=== PATIENT | female | born 1945 | race Caucasian/White ===

== ENCOUNTER → 2023-08-24 08:28 | Outpatient (REF) | payer MEDICARE, OTHER, SELFPAY ==
[2023-08-24 12:26] LABS: Hematocrit 36.4 % (37.0-47.0); Hemoglobin 11.9 g/dL (12.0-16.0); Mean Corp Hgb Conc. 32.7 g/dL (33.0-37.0); Mean Corpuscular Hgb 30.8 pg (27.0-31.0); Mean Corpuscular Volume 94.3 fL (81.0-99.0); Mean Platelet Volume 9.8 fL (7.4-10.4); Platelet Count 413 10^3/uL (130-400); Red Blood Cell Count 3.86 10^6/uL (4.20-5.40); Red Cell Dist. Width 15.9 % (11.5-14.5); White Blood Cell Count 6.1 10^3/uL (4.8-10.8)
[2023-08-24 12:30] LABS: ALT (SGPT) 13 U/L (0-35); AST (SGOT) 28 U/L (14-36); Albumin 4.6 g/dl (3.5-5.0); Alkaline Phosphatase 79 U/L (38-126); Blood Urea Nitrogen 18 mg/dl (7-17); Calcium 9.8 mg/dl (8.4-10.2); Carbon Dioxide 27 mmol/L (22-30); Chloride 103 mmol/L (98-107); Glucose 95 mg/dl (70-99); HDL Cholesterol 95 mg/dl; LDL Cholesterol, Calculated 41 mg/dl; Potassium 4.9 mmol/L (3.5-5.1); Sodium 138 mmol/L (135-145); Total Bilirubin 0.4 mg/dl (0.2-1.3); Total Cholesterol 163 mg/dl (50-199); Total Protein 7.7 g/dl (6.3-8.2); Triglyceride 136 mg/dl (10-149); Very Low Density Lipoprotein 27 mg/dl (0-30); eGFR > 60.00
[2023-08-24 12:58] LABS: TSH Reflex To Free T4 0.76 uIU/ml (0.47-4.68)
[2023-08-24 13:17] LABS: Vitamin B12 942 pg/ml (239-931)
== END ==
LOC: HWLAB 08:28
PROVIDERS: ATTENDING PHYSICIAN Internal Medicine; FAMILY PHYSICIAN Specialist; REFERRING PHYSICIAN Internal Medicine Cardiovascular Disease
DX: I48.91 Unspecified atrial fibrillation (principal); G45.9 Transient cerebral ischemic attack, unspecified; D51.8 Other vitamin B12 deficiency anemias; I10 Essential (primary) hypertension; E03.9 Hypothyroidism, unspecified; F41.1 Generalized anxiety disorder; E78.5 Hyperlipidemia, unspecified; G89.29 Other chronic pain; R53.82 Chronic fatigue, unspecified; B94.8 Sequelae of other specified infectious and parasitic diseases; D68.69 Other thrombophilia
CPT/HCPCS: 36415; 80053; 80061; 82607; 84443; 85027; 93005

== ENCOUNTER → 2023-10-15 10:05 | Outpatient (REF) | payer MEDICARE, OTHER, SELFPAY | LOC: RCS 10:05 | PROVIDERS: ATTENDING PHYSICIAN Nurse Practitioner Gerontology; FAMILY PHYSICIAN Internal Medicine | DX: I34.0 Nonrheumatic mitral (valve) insufficiency (principal) | CPT/HCPCS: 93306 ==

== ENCOUNTER 2024-01-16 16:42 | Inpatient (IN) | payer MEDICARE, OTHER, SELFPAY ==
[2024-01-16] VITALS (10 sets, daily range): BP systolic 115–143; BP diastolic 59–88; BMI 27.5
[2024-01-16 13:19] LABS: % Basophils 0.5 % (0-2); % Eosinophils 3.1 % (0-6); % Immature Granulocytes 0.1 % (0-0.5); % Lymphocytes 20.9 % (20.5-51.1); % Monocytes 10.1 % (1.7-9.3); % Neutrophils 65.3 % (42.2-75.2); Absolute Eosinophils 0.2 10^3/uL (0-0.7); Absolute Lymphocytes 1.6 10^3/uL (1.2-3.4); Absolute Monocytes 0.8 10^3/uL (0.1-0.6); Absolute Neutrophils 4.8 10^3/uL (1.4-6.5); Hematocrit 33.2 % (37.0-47.0); Hemoglobin 11.1 g/dL (12.0-16.0); Mean Corp Hgb Conc. 33.4 g/dL (33.0-37.0); Mean Corpuscular Volume 95.7 fL (81.0-99.0); Mean Platelet Volume 9.4 fL (7.4-10.4); Nucleated Red Blood Cells % 0 %; Platelet Count 389 10^3/uL (130-400); Red Blood Cell Count 3.47 10^6/uL (4.20-5.40); Red Cell Dist. Width 15.6 % (11.5-14.5); White Blood Cell Count 7.4 10^3/uL (4.8-10.8)
[2024-01-16 13:23] LABS: ALT (SGPT) 19 U/L (0-35); AST (SGOT) 38 U/L (14-36); Alkaline Phosphatase 90 U/L (38-126); Blood Urea Nitrogen 10 mg/dl (7-17); Calcium 9.4 mg/dl (8.4-10.2); Carbon Dioxide 28 mmol/L (22-30); Chloride 101 mmol/L (98-107); Estimated Creatinine Clearance 43 ml/min; Glucose 85 mg/dl (70-99); Potassium 4.5 mmol/L (3.5-5.1); Sodium 134 mmol/L (135-145); Total Bilirubin 0.2 mg/dl (0.2-1.3); Total Protein 6.8 g/dl (6.3-8.2)
[2024-01-16 13:51] LABS: Troponin I 0.018 ng/ml
--- NOTE | 2024-01-16 14:15 | ED.CVA ---
History of Present Illness
General
Chief Complaint: CVA/TIA Symptoms
Source: patient and family
Time Seen by Provider: 01/16/24 12:50
Onset of Stroke Symptoms
Onset of symptoms known: Yes
Date of onset of symptoms: 01/16/24
History of Present Illness
History of Present Illness:
79-year-old female with history of CVA and A-fib on Eliquis who presents after she developed profound weakness. She states she dropped something and went to get up and could not get up due to profound leg weakness. Attempted to call sort of carry
her. Family also noticed a slight left facial droop. Patient states similar symptoms happened last time when she had a stroke event. At that time however her speech was markedly abnormal. Patient states symptoms started around 1220. c/o mild LA.
no trauma.
Past History
Past History
ED Past Medical History: Arrthythmia, CVA, Hypercholesterolemia and Valvular disease
Phy Exam
Physical Exam
Physical Exam:
CONSTITUTIONAL Patient alert and oriented to person, place and time. Well-appearing. Vital signs reviewed.
HEAD atraumatic, normocephalic.
EYES eyelids normal to inspection, Pupils equally round and reactive to light, Extraocular muscles intact, Conjunctiva normal, Sclera normal.
NECK normal range of motion, Trachea midline, no jugular venous distention.
RESPIRATORY CHEST No respiratory distress noted, Chest expansion equal.
CARDIOVASCULAR irregularly irregular
ABDOMEN No distention.
UPPER EXTREMITY range of motion normal, Motor strength normal, no cyanosis, no edema.
LOWER EXTREMITY range of motion normal, Motor strength normal, no cyanosis, no edema.
NEURO Speech normal, No focal motor deficits, Emily coma scale 15, Memory normal, Cranial Nerves intact to screening exam. Normal finger-nose. Normal [id number]. No visual field deficits
SKIN skin warm, dry, and normal in color.
PSYCHIATRIC patient oriented to person place and time, Normal affect.
Scores
NIH Stroke Score
Level of Consciousness: 0 - Alert
LOC Questions: 0-Answers both correctly
LOC Commands: 0-Performs both correctly
Best Horizontal Gaze: 0-Normal
Visual Spence: 0=Normal, no visual loss
Facial Palsy: 1=Minor paralysis
Motor - Right Arm: 0=No drift 10 seconds
Motor - Left Arm: 0=No drift 10 seconds
Motor - Right Le-No drift 5 seconds
Motor - Left Le-No drift 5 seconds
Limb Ataxia: 0-Absent
Sensation: 0-Normal
Best Language: 0-No aphasia
Dysarthria: 1-Mild slurring
Extinction and Inattention: 0-No abnormality
Total Score:: 2
Course
Orders/Labs/Results
Orders:
Orders
01/16/24 12:51
Electrocardiogram (*1) Urgent
Reason for Study: Fatigue / Weakness
CT Head W/o Iv Contrast Urgent
Comment:
Reason For Exam: weakness, LA, on eliquis
EKG- Treatment ONCE
Urinalysis Reflex To Culture Urgent
01/16/24 13:03
CBC/With Diff [Complete Blood Count/With Diff] Urgent
Comprehensive Metabolic Panel Urgent
Troponin I Urgent
01/16/24 13:23
CT Head/Neck Ang STROKE ALERT Urgent
Comment:
Reason For Exam: L facial droop, dysarthria
01/16/24 13:57
Aspirin 600 mg PO NOW STA
Abnormal Lab Results
01/16/24
13:03
RBC 3.47 L 10^6/uL
(4.20-5.40)
Hgb 11.1 L g/dL
(12.0-16.0)
Hct 33.2 L %
(37.0-47.0)
MCH 32.0 H pg
(27.0-31.0)
RDW 15.6 H %
(11.5-14.5)
Absolute Monos (auto) 0.8 H 10^3/uL
(0.1-0.6)
Monocytes % 10.1 H %
(1.7-9.3)
Sodium 134 L mmol/L
(135-145)
AST 38 H U/L
(14-36)
01/16/24 13:03
01/16/24 13:03
Vital Signs
Initial and Last Documented VS:
Initial Vital Signs
Pulse Resp BP
125 18 142/84
01/16/24 12:45 01/16/24 12:45 01/16/24 12:45
Last Documented Vital Signs
Pulse Resp BP
125 18 142/84
01/16/24 12:45 01/16/24 12:45 01/16/24 12:45
MDM/Problems Addressed
MDM/Problems Addressed:
Chronic atrial fibrillation, CVA
*Radiology
Radiology exam reviewed: radiology read reviewed
*Pulse Oximetry
Patient hypoxic: no
*EKG
Interpreted by ED Provider?: Yes
Interpretation: abnormal
[place]: normal axis
Ischemia: non-specific ST changes
*Rubber Grinder Interpretation
Rate: tachycardiac
Rhythm: a-fib
*Critical Care Note
Total Time (30-74mins, 75-104mins- exclusive of procedures): 30 minutes
Data Reviewed
Source: patient and family
Prescriptions/Medications Considered But Not Given:
Consider TNK but patient with Eliquis
Patient Management
Discussion with other providers: Hospitalist and Strong Nitric Operator (Discussed with neurology who recommends aspirin 600 mg.)
Escalation/DeEscalation of care consider admission/obs:
79-year-old female presents with neurologic symptoms as noted above. On reevaluation does seem a little better and her speech seems a little more clear. Initially when she came in her voice and speech seemed clear to me. Family arrived and felt
that her speech was little more dysarthric than her baseline. Stroke alert was initiated shortly after arrival. No indication for TNK on ED workup
ED Attending Note
-
Portions of this chart may have been created with voice recognition software.� Occasional wrong word or��sound alike� substitutions may have occurred due to the inherent limitations of voice recognition software.
Discharge Plan
Departure
Patient Disposition: Admit
Date of Disposition: 01/16/24
Time of Disposition: 14:28
Admit to: Telemetry
Presentation/result/management discussed w/ accepting MD/DO: Hospitalist
Discharge Problem:
Acute CVA (cerebrovascular accident), Atrial fibrillation
Prescriptions:
No Action
levothyroxine 75 mcg Tablet
75 mcg PO DAILY
tramadol 50 mg Tablet
50 mg PO TIDPRN PRN (Reason: severe pain)
alprazolam 0.5 mg Tablet
0.5 mg PO TID
zolpidem 10 mg Tablet
10 mg PO HSPRN PRN (Reason: sleep)
rosuvastatin 10 mg Tablet
10 mg PO QPM
Eliquis 5 mg Tablet
5 mg PO BID
sotalol 80 mg Tablet
40 mg PO Q12H Qty: 60 3RF
gabapentin 300 mg Capsule
900 mg PO TID
cyanocobalamin (vitamin B-12) 1,000 mcg Tablet
1,000 mcg PO DAILY
fluticasone propionate [Flonase] 50 mcg/actuation [place],Suspension
1 spray INTRANASAL DAILY
folic acid 800 mcg Tablet
0.8 mg PO DAILY
Referrals:
Leoncio Dutton MD [Family Provider] -
Interventions
Interventions:
*Risk Screen - Suicide Last Done: 01/16/24 12:56
*General Assessment Last Done: 01/16/24 12:56
*Neglect/Abuse Screening Last Done: 01/16/24 12:56
ED- Fall Risk Assessment Last Done: 01/16/24 12:58
*ED COVID-19 Vaccine History Last Done: 01/16/24 12:56
ED- Pulmonary Assessment Last Done: 01/16/24 12:58
ED- Neurological Assessment Last Done: 01/16/24 12:58
ED- Cardiac Assessment Last Done: 01/16/24 12:58
Discharge Date and Time
Print Language: OCCITAN
[2024-01-16] MEDS: ASPIRIN 600 MG PO (14:18)
--- NOTE | 2024-01-16 16:01 | HPS.HSE ---
Family Physician
-
Family Physician: Leoncio Dutton
Chief Complaint
-
Weakness, slurred speech
History of Present Illness
79-year-old woman with history of CVA and A-fib on Eliquis comes in after she developed profound weakness, worse on her legs. She states she dropped something and went to get up and could not get up due to leg weakness. Her family also noticed a
slight left facial droop. Patient states that she had similar symptoms last time when she had a stroke. At that time of my interview, her speech was normal. Patient states symptoms started around 1220. c/o mild LA. no trauma. Only symptoms at
the time of my interview were a mild subjective change in sensation on her cheeks, and bilateral leg weakness.
Medical History
Past Medical History
Past Medical History: Reports Other
Additional Past Medical History:
Arrthythmia,
CVA,
Hypercholesterolemia
Valvular disease
Severe mitral regurgitation
Pulmonary nodule
Paroxysmal a-fib
COVID
Pulmonary hypertension
Interstitial lung disease
Past Surgical History: Reports Other
Additional Past Surgical History:
not described
Social History
Tobacco: Non-smoker
Alcohol: Occasional
Drug: None
Family History
Family History: Not pertinent
Allergies / Home Medications
Allergies reflects when Allergies were last updated in [facility].
Home Medications with original date entered in [facility]
Allergy/Medication List:
Allergies
Allergy/AdvReac Type Severity Reaction Status Date / Time
No Known Allergies Allergy Unverified 12/07/22 16:11
Home Medications
alprazolam 0.5 mg tablet 0.5 mg PO TID Mental Health/Anxiety 12/07/22
apixaban 5 mg tablet (Eliquis) 5 mg PO BID Blood Clot Prevention/Tx 12/07/22
levothyroxine 75 mcg tablet 75 mcg PO DAILY Thyroid 12/07/22
rosuvastatin 10 mg tablet 10 mg PO QPM High Cholesterol 12/07/22
tramadol 50 mg tablet 50 mg PO TIDPRN PRN severe pain 12/07/22
zolpidem 10 mg tablet 10 mg PO HSPRN PRN sleep 12/07/22
sotalol 80 mg tablet 40 mg (1/2 x 80 mg) PO Q12H #60 tabs 12/11/22
cyanocobalamin (vitamin B-12) 1,000 mcg tablet 1,000 mcg PO DAILY 01/16/24
fluticasone propionate 50 mcg/actuation nasal spray,suspension 1 spray intranasal DAILY 01/16/24
folic acid 800 mcg tablet 0.8 mg PO DAILY 01/16/24
gabapentin 300 mg capsule 900 mg PO TID 01/16/24
Review of Systems
-
History Source: Patient
A 12 point ROS was completed and negative except as noted: Yes
Physical Exam
Vital Signs
Vital Signs
Pulse Resp BP
125 18 142/84
01/16/24 12:45 01/16/24 12:45 01/16/24 12:45
Physical Exam
General: Well Developed, Well Nourished, No Apparent Distress, Comfortable and Conversant
HEENT: [place] Conjunctivae, No Ptosis, Nose Appears Normal and Ears Appear Normal
Respiratory: Clear
Cardiac: S1/S2 and Irregular Rhythm
GI: Soft, Non Tender and Non Distended
Musculoskeletal: No Clubbing, No Cyanosis and No Edema
Skin: Warm and Dry; No Rash
Neuro: Awake, Alert, Oriented and AO x 3
Psych: Calm
Laboratory Results
-
01/16/24 13:03
01/16/24 13:03
Laboratory Results
Total Bilirubin 0.2 mg/dl (0.2-1.3) 01/16/24 13:03
AST 38 U/L (14-36) H 01/16/24 13:03
ALT 19 U/L (0-35) 01/16/24 13:03
Alkaline Phosphatase 90 U/L (38-126) 01/16/24 13:03
Troponin I 0.018 ng/ml 01/16/24 13:03
Data Reviewed
-
Lab Data: Labs Reviewed by me
Impression/Plan
-
IMPRESSION:
79 woman with bilateral leg weakness and changes of sensation to her face. Changes in speech resolved. Family concerned she may have a UTI. Significant findings:
H/H 11.1/33.2
Na 134
CT: no acute IC problems
PLAN:
1. Neuro symptoms - TIA vs metabolic encephalopathy from occult infection
Check UA
TIA/CVA workup per protocol
Neuro consult
2. Mild anemia - not likely to be clinically significant, normocytic with high RDW.
Follow as outpatient
Check again in am
3. Mild hyponatremia - not likely to be clinically significant
Check again in am
4. Afib - continue Eliquis, rat now < 100
Continue home meds
VCD for DVTp
Full code
[2024-01-16 16:42] LABS: Urine Albumin Trace (Neg - Trace); Urine Bilirubin Negative (Negative); Urine Character Slightly Cloudy (Clear); Urine Color Yellow; Urine Glucose Negative (Negative); Urine Ketone Negative (Negative); Urine Leukocyte 2+ (Negative); Urine Nitrite Negative (Negative); Urine Occult Blood 1+ (Negative); Urine Specific Gravity 1.005 (<1.030); Urine Urobilinogen Negative (Neg - 1+); Urine pH 6.5 (5.0-9.0)
[2024-01-16 16:56] LABS: Urine White Cell 26-30 /HPF (0-5)
[2024-01-16 16:57] LABS: Urine Bacteria Few (Negative)
--- NOTE | 2024-01-16 17:23 | CON.NEURO4 ---
Consultation - Neurology 4
-
CONSULTING PHYSICIAN: Jeremi Taveras MD(Neurology)
REFERRING PHYSICIAN: Hospitalist
DICTATED BY: Jeremi Taveras MD
DATE/TIME OF REQUEST: January 16, 2024
DATE/TIME OF CONSULTATION: January 16, 2024 1715
Reason for Consultation: Leg weakness
History of Present Illness:
This is a 79 year old right handed female who has presented to the hospital with (chief complaint) of leg weakness. She gives a history of COVID paroxysmal atrial fibrillation(Eliquis) severe mitral regurgitation interstitial lung disease
pulmonary hypertension osteoarthritis lumbar spondylosis/stenosis with lumbar radiculopathy. She had been initial state of health this morning. After she woke up this morning at 730 she had a breakfast and was watching TV. While getting her
medications at 1130 her pill splitter fell to the floor. She bent over to pick the pill splitter and she fell, hurting her back. She usually has low back pain radiating to the left leg. After she fell she had pain radiating into her right leg.
Subsequently she was unable to stand. She then called her daughter who had to pick her up. Since she was unable to stand, EMS was notified and patient was brought to the hospital. On arrival in ED physician noted facial asymmetry, and was
informed that she had slurred speech. Stroke alert was initiated. Given the low NIH score of 1-2 with no focal weakness other than gait ataxia she was not a candidate for intravenous thrombolysis
About 8 years ago she had a similar episode of weakness with slurred speech. However at this time she has no slurred speech or aphasia
Past Medical History: CVA, Hypercholesterolemia,Valvular disease,Severe mitral regurgitation,Pulmonary nodule,Paroxysmal atrial-fibrill, COVID, Pulmonary hypertension,Interstitial lung disease
Surgical History: None
Family History: Noncontributory
Social History: Lives at home with her daughter does not smoke or use alcohol
Allergies: None
Home Medications: See addendum
Review of Symptoms:
Patient denies any fever, headache, chest pain, shortness of breath, GI or symptoms.
�Per the HPI.�All systems are reviewed negative except above.
�-
Vital Signs:
The patient has a Pulse 125 Resp 18 BP142/84 afebrile
Physical Exam:
The patient is afebrile, heart sounds S1 and S2 are irregular, and chest is clear to auscultation bilaterally.
Neurologic Examination:
The patient is awake, alert and oriented x 3. She is able to follow commands and answer questions appropriately. There is no aphasia or dysarthria. On cranial nerve assessment, pupils are 3 mm bilateral, round and reactive to light and
accommodation. Visual alexandre are full. Extraocular movements are intact. Facial sensations are intact and bilaterally symmetrical, there is no facial asymmetry. Hearing is intact bilaterally to normal conversation volume. Tongue palate and uvula
are midline. Sternocleidomastoid strengths are full bilaterally.
Motor strengths are 5/5 bilateral upper extremities. Lower extremity strength is 3+ /5 . There is no drift or involuntary movement noted. Deep tendon reflexes are + bilateral upper and lower extremities and Babinski is absent bilaterally.
Sensations of pain, touch, temperature and vibration are decreased in the lower extremities and asymmetrical.. Coordination is intact by finger to nose bilaterally. Romberg's positive. Gait: She needs two-person assist
Lab Results: See addendum
Neuro Imaging: CT head reveals cortical atrophy small vessel disease normal ventricles. CT angiogram head and neck shows no stenosis or occlusion
Impression:
Ms.)NANCY Samantha SOUTH is a 79 year old F who has presented to the hospital with (symptoms/chief complaint). Low back pain and bilateral leg weakness who was unable to stand
Differentials for the patient's presentation include:
1. Lumbar spondylosis lumbar radiculopathy
2. Conus medullaris/cauda equina
3. Vertebrobasilar insufficiency
Patient is not a candidate IV Tenecteplase/IAT candidacy as history and exam are consistent with lumbar spondylosis and lumbar radiculopathy
Recommendations:
1. MRI lumbar spine
2. Bedrest
3. Physical therapy
Discussed patient care with: Hospitalist and radiologist
Allergies
-
Allergies
Allergy/AdvReac Type Severity Reaction Status Date / Time
No Known Allergies Allergy Unverified 12/07/22 16:11
Vital Signs and Labs
-
Vital Signs and Labs:
Vital Signs
Pulse Resp BP Pulse Ox
89 22 139/83 95
01/16/24 16:15 01/16/24 16:15 01/16/24 16:31 01/16/24 16:45
Lab Results
01/16/24 13:03
01/16/24 13:03
Sodium 134 mmol/L (135-145) L 01/16/24 13:03
Potassium 4.5 mmol/L (3.5-5.1) 01/16/24 13:03
BUN 10 mg/dl (7-17) 01/16/24 13:03
Glucose 85 mg/dl (70-99) 01/16/24 13:03
Calcium 9.4 mg/dl (8.4-10.2) 01/16/24 13:03
Medications
-
Active Medications
Generic Name Dose Route Start Last Admin
Trade Name Freq PRN Reason Stop Dose Admin
Acetaminophen 650 mg 01/16/24 17:22
Acetaminophen 650 Mg Rectal Suppository RECTAL 02/13/24 17:21
Q4HPRN PRN
LA, mild pain, or temp >100.4F
Acetaminophen 650 mg 01/16/24 17:22
Acetaminophen 325 Mg Tablet PO 02/13/24 17:21
Q4HPRN PRN
LA, mild pain, or temp >100.4F
Alprazolam 0.5 mg 01/16/24 22:00
Alprazolam 0.5 Mg Tablet PO 02/13/24 21:59
TID ANTONI
Apixaban 5 mg 01/16/24 20:00
Apixaban (Eliquis) 5 Mg Tablet PO 02/13/24 19:59
BID ANTONI
Aspirin 81 mg 01/17/24 08:00
Aspirin 81 Mg Chewable Tablet PO 02/14/24 07:59
DAILY ANTONI
Cyanocobalamin 1,000 mcg 01/17/24 08:00
Cyanocobalamin 1,000 Mcg Tablet PO 02/14/24 07:59
DAILY ANTONI
Gabapentin 900 mg 01/16/24 22:00
Gabapentin 300 Mg Capsule PO 02/13/24 21:59
TID ANTONI
Levothyroxine Sodium 75 mcg 01/17/24 08:00
Levothyroxine 75 Mcg Tablet PO 02/14/24 07:59
DAILY ANTONI
Non-Formulary Medication 1 spray 01/17/24 08:00
Fluticasone Propionate NASAL 02/14/24 07:59
DAILY ANTONI
Non-Formulary Medication 0.8 mg 01/17/24 08:00
Folic Acid PO 02/14/24 07:59
DAILY ANTONI
Rosuvastatin Calcium 10 mg 01/16/24 18:00
Rosuvastatin (Crestor) 10 Mg Tablet PO 02/13/24 17:59
QPM ANTONI
Sotalol HCl 40 mg 01/16/24 17:22
Sotalol 80 Mg Tablet PO 02/13/24 17:21
Q12H ANTONI
Tramadol HCl 50 mg 01/16/24 17:22
Tramadol Hcl 50 Mg Tablet PO 02/13/24 17:21
TIDPRN PRN
severe pain
Home Medications
�Medication �Instructions �Recorded
alprazolam 0.5 mg tablet 0.5 mg PO TID Mental Health/Anxiety 12/07/22
apixaban 5 mg tablet (Eliquis) 5 mg PO BID Blood Clot 12/07/22
Prevention/Tx
levothyroxine 75 mcg tablet 75 mcg PO DAILY Thyroid 12/07/22
rosuvastatin 10 mg tablet 10 mg PO QPM High Cholesterol 12/07/22
tramadol 50 mg tablet 50 mg PO TIDPRN PRN severe pain 12/07/22
zolpidem 10 mg tablet 10 mg PO HSPRN PRN sleep 12/07/22
sotalol 80 mg tablet 40 mg (1/2 x 80 mg) PO Q12H #60 12/11/22
tabs
cyanocobalamin (vitamin B-12) 1,000 mcg PO DAILY 01/16/24
1,000 mcg tablet
fluticasone propionate 50 1 spray intranasal DAILY 01/16/24
mcg/actuation nasal
spray,suspension
folic acid 800 mcg tablet 0.8 mg PO DAILY 01/16/24
gabapentin 300 mg capsule 900 mg PO TID 01/16/24
--- NOTE | 2024-01-16 17:48 | PTCARENOTE ---
01/15- Patient transferred and oriented to unit without issue. AAOX3, anxious, unable to ambulate without assistance or long distances. NIH currently a 3. Patient denies any current needs.
[2024-01-16] MEDS: BETAPACE 40 MG PO (20:00)
[2024-01-16] MEDS: ELIQUIS 5 MG PO (20:00)
[2024-01-16] MEDS: CRESTOR 10 MG PO (20:00)
[2024-01-16] MEDS: ULTRAM 50 MG PO (20:04)
[2024-01-16] MEDS: XANAX 0.5 MG PO (22:58)
[2024-01-16] MEDS: NEURONTIN 900 MG PO (22:58)
[2024-01-17] VITALS (7 sets, daily range): BP systolic 113–148; BP diastolic 55–95; PULSE 70–85; BMI 27.6
[2024-01-17] MEDS: SYNTHROID 75 MCG PO (05:38)
[2024-01-17] MEDS: NEURONTIN 900 MG PO ×2 (07:26→15:50)
[2024-01-17] MEDS: XANAX 0.5 MG PO ×2 (07:26→15:51)
[2024-01-17] MEDS: BETAPACE 40 MG PO (07:26)
[2024-01-17] MEDS: ELIQUIS 5 MG PO (07:26)
[2024-01-17] MEDS: VITAMIN B-12 1000 MCG PO (07:26)
[2024-01-17] MEDS: FOLVITE 0.8 MG PO (07:27)
--- NOTE | 2024-01-17 09:33 | PTCARENOTE ---
01/16- Found 2 Tylenol pills under patient's back that did not match our formulary, as well as Patient showing us her own supply of Eliquis. She did not show us these home meds during admission, because she states she forgot. Patient also states
she takes her Sotalol at 10am, not 8am so she requests the time be changed. She states no reason other than habit of taking Sotalol separate from other morning medications. Advised patient on hospital policy of processing her home meds through our
pharmacy so we can account for all medications as well as being sure no medication errors occur, so that she's only taking what's ordered. She verbalized understanding. She denies any other medications and states she will send her home meds home
with family when they visit today. Advised this RN will ask Physician about changing timing of Sotalol.
[2024-01-17 09:41] LABS: HDL Cholesterol 79 mg/dl; LDL Cholesterol, Calculated 70 mg/dl; Total Cholesterol 172 mg/dl (50-199); Triglyceride 119 mg/dl (10-149); Very Low Density Lipoprotein 23 mg/dl (0-30)
--- NOTE | 2024-01-17 09:51 | W.PN.HOSP.TC ---
Today's Communication/Plan
-
Discharge today
Assessment / Plan
Assessment / Plan
#Acute lower back pain with bilateral lower extremity weakness
#Mechanical fall
Thoracic and lumbar spine MRI shows degenerative disc disease
Orthostatic vital signs negative, PT recommends home care
Start Tylenol 1 g 3 times daily, tramadol prn
Cleared by neurology for discharge, follow-up in the office for EMG and acetylcholine receptor antibody results
#Asymptomatic bacteriuria
Monitor off antibiotic
#Paroxysmal atrial fibrillation
Continue Eliquis, sotalol
#Anxiety/depression
Continue Xanax
#Osteoarthritis/degenerative disc disease
Continue home tramadol
DVT prophylaxis�Eliquis
Full code
Updated daughter at bedside and on phone 01/16
Physical Exam
General: No acute distress
HEENT: Normocephalic, Atraumatic, EOMI, MMM
Respiratory: Clear to Auscultation bilaterally
Cardiac: Normal S1/S2, Regular Rate and Rhythm
GI: Soft, Nontender, Nondistended, Normal Bowel Sounds
Extremities: No Clubbing, Cyanosis, or Edema
Neuro: Nonfocal/Grossly Intact
Psych: Calm, Cooperative
Anticipated Discharge: Today
Subjective/Interval History
-
Date of Service: January 17, 2024
Patient reports her lower back pain has improved. She was able to stand with physical therapy. She complains of a headache and knee pain. No fever, no vomiting.
Objective Data
-
Vital Signs:
Vital Signs
Temp Pulse Resp BP Pulse Ox
98.5 F 91 18 139/64 97
01/17/24 07:00 01/17/24 07:00 01/17/24 07:00 01/17/24 07:00 01/17/24 07:00
I&O
01/16/24 01/17/24 01/18/24
06:59 06:59 06:59
Intake Total 240 / 240
Balance 240 / 240
--- NOTE | 2024-01-17 10:16 | PTOTSP ---
SPEECH THERAPY SWALLOW EVALUATION:
Patient exhibits grossly functional oropharyngeal swallow at this time. No signs or symptoms of aspiration. WBC WNL. No CXR available. No history of pneumonia. Patient with predisposing dysphagia/aspiration risk factors of past CVA, interstitial
lung disease. Patient initially was reported to have facial droop and slurred speech, though no facial droop or slurred speech noted at time of this evaluation. Head CT demonstrating chronic infarct involving superior margin of right insular cortex.
Patient endorsed chronic occasional globus sensation with solids which clears with liquid wash, and did not endorse globus sensation at time of this assessment. DDx per Neurology note include: Lumbar spondylosis lumbar radiculopathy; Conus
medullaris/cauda equina; Vertebrobasilar insufficiency. At this time, dysphagia treatment at the acute care level is not indicated, at patient appears to be at baseline level of swallow function. Recommend continue Regular texture diet, thin
liquids. Medications whole with liquid as best tolerated. Aspiration precautions: Upright positioning; Small single sips; small bites; Slow rate; Intersperse liquids. ST to follow for speech/language/cognitive communication evaluation should it be
warranted, though at this time no signs of speech/language or cognitive communication impairments are present.
RECOMMEND:
1) continue Regular texture solids, thin liquids
2) Medications whole with liquid as best tolerated
3) Aspiration precautions: Upright positioning; Small single sips; small bites; Slow rate; Intersperse liquids
4) No skilled Swallow Therapy is indicated at this time; ST to follow for speech/language/cognitive communication evaluation should it be warranted
[2024-01-17] MEDS: TYLENOL 1000 MG PO ×2 (10:54→15:51)
--- NOTE | 2024-01-17 11:53 | W.PN.NEURO.1 ---
Today's Communication / Plan
-
Check acetylcholine receptor antibodies
Consider outpatient EMG of bilateral lower extremities
Check orthostatic blood pressures
Continue apixaban
No indication at this time for the use of aspirin
Continue rosuvastatin
May continue use of gabapentin and tramadol as needed
Neuro Assessment/Plan
Assessment
Neuro Imaging: CT head reveals cortical atrophy small vessel disease normal ventricles. CT angiogram head and neck shows no stenosis or occlusion
MsShannon)LENNY SOUTH is a 79 year old F who has presented to the hospital with episode of fall and inability to stand.
Differentials for the patient's presentation For the patient's acute variable proximal weakness include:
Myasthenia gravis as evidence of a structural abnormality in the thoracic or lumbar spines is absent and the patient has no issue with bilateral upper extremity strength
Plan
Check acetylcholine receptor antibodies
Consider outpatient EMG of bilateral lower extremities
Check orthostatic blood pressures
Continue apixaban
No indication at this time for the use of aspirin
Continue rosuvastatin
May continue use of gabapentin and tramadol as needed
Will follow
Subjective/Objective
Subjective Data
Date of Service: January 17, 2024
No return of symptoms.
Objective Data
Vital Signs
Temp Pulse Resp BP Pulse Ox
36.9 C 91 18 139/64 97
01/17/24 07:00 01/17/24 07:00 01/17/24 07:00 01/17/24 07:00 01/17/24 07:25
Lab Results
01/16/24 13:03
01/16/24 13:03
Sodium 134 mmol/L (135-145) L 01/16/24 13:03
Potassium 4.5 mmol/L (3.5-5.1) 01/16/24 13:03
BUN 10 mg/dl (7-17) 01/16/24 13:03
Glucose 85 mg/dl (70-99) 01/16/24 13:03
Calcium 9.4 mg/dl (8.4-10.2) 01/16/24 13:03
LDL Cholesterol, Calc 70 mg/dl 01/17/24 07:12
Patient Allergies
No Known Allergies Allergy (Unverified 12/07/22 16:11)
Review of Systems
-
History Source: Patient
All other systems: Reviewed and negative
Musculoskeletal: Muscle Weakness (In lower extremities, not upper extremities) and Other (knee pain)
Neuro: Headache; Negative Dizzy
Physical Exam
-
General: No Apparent Distress and Appears Stated Age
Eyes: Round OU, [place] Conjunctivae and No Ptosis
HEENT: Anicteric and Moist Mucous Membranes
Neck: Full Range of Motion
Respiratory: No Dyspnea
Cardiac: No JVD
GI: Non-distended
Skin: Unremarkable
Extremities: No Clubbing, No Cyanosis and No Edema
Psych: Negative Intact Judgement/Insight
Extended Neurological Exam
Mood & Affect: Negative Affect Unremarkable (Irritable)
Attention Span & Concentration: Awake, Alert, Interactive and No Difficulty with 2 Step Request
Memory: Unremarkable
Tremor: Hand Tremor Absent and Head Tremor Absent
Speech: Quality Unremarkable and Quantity Unremarkable
Cranial Nerve II: Left Eye: Pupillary Size Unremarkable and Visual Spence Grossly Intact
Cranial Nerve II: Right Eye: Pupillary Size Unremarkable and Visual Spence Grossly Intact
Cranial Nerves III, IV, : Extraocular Movement: Grossly Intact
Cranial Nerve VII: Facial Symmetry: Normal Facial Symmetry
Cranial Nerve VIII: Hearing: Unremarkable Hearing to Normal Conversational Volume
Cranial Nerves IX, X: Palate Movement: Palate Elevation Symmetric
Cranial Nerve XI: Shoulder Shrug: Unremarkable
Cranial Nerve XII: Tongue Protusion: Midline
Muscle Strength, Overall: Reduced (Bilateral leg strength approximately 4+ out of 5) and Otherwise Intact
Muscle Bulk & Tone: Bulk Unremarkable and Tone Unremarkable
Pronator Drift: No Drift in Upper Extremities
Touch Sensation: Unremarkable
Coordination: [id number] Testing Unremarkable
Data Reviewed
-
MRI Cervical Spine: Report Reviewed
MRI Thoracic Spine: Report Reviewed
Labs: Report Reviewed
Reviewed with: Physician, Nurse Practioner, Patient and Family
Old Records: Summarized
Past History
Past History
ED Past Medical History: Arrthythmia (Atrial fibrillation), CVA, HTN, Hypercholesterolemia, Valvular disease and Other (CRISTIAN on CPAP, pulmonary hypertension, COVID-19 2020, chronic back pain)
ED Past Surgical History: Cardiac (Cardioversion 2022) and Gynecological (Hysterectomy)
Social History
Tobacco: Non-smoker
Alcohol: Occasional
Family History
Family History: Other (reviewed and non-contributory)
--- NOTE | 2024-01-17 15:36 | W.DCSUMMARY ---
Discharge Summary
Discharge Data
Date of Admission: 01/16/24
Date of Discharge: 01/17/24
-
Pending Results: No
Additional Pending Results:
Acetylcholine receptor antibodies
Hospital Course
Discharge diagnosis:
Acute on chronic lower back pain with bilateral lower extremity weakness
Mechanical fall
Asymptomatic bacteriuria
Paroxysmal atrial fibrillation on Eliquis
Anxiety/depression
Osteoarthritis
Degenerative disc disease
Consults: Neurology
Head CT:
No acute intracranial abnormality noted. No acute hemorrhage. Minor linear chronic infarct involving the superior margin of the right insular cortex. Atrophy.
Thoracic/lumbar spine MRI:
Chronic mild degenerative changes of the thoracic spine without MRI evidence for spinal canal stenosis or neuroforaminal stenosis.
Discogenic and facet degenerative changes. No compression deformity or spondylolisthesis. No compression of the conus medullaris or cauda equina.
Hospital course:
79-year-old female with a past medical history of paroxysmal atrial fibrillation on Eliquis, mitral regurgitation, interstitial lung disease, pulmonary hypertension, degenerative disc disease, and osteoarthritis presents with acute on chronic back
pain and bilateral lower extremity weakness after falling. 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 She injured her back, and has bilateral lower extremity weakness. She was seen in the emergency room, and had facial asymmetry.
Stroke alert was called. Patient was seen in conjunction with neurology, she was not a candidate for IV thrombolysis. Head CT was negative. Neurology suspects lumbar spondylosis with lumbar radiculopathy.
She had thoracic and lumbar spine MRI, showing chronic degenerative disc disease as above. She does have mild bilateral lower extremity weakness. Neurology recommends checking acetylcholine receptor antibodies, and outpatient EMG if her weakness
is persistent.
Patient was seen in conjunction with PT, who recommended home PT. She is medically stable for discharge. She has been instructed to follow-up with her primary care doctor in 1 week, as well as neurology in the office in 3-4 weeks.
Disposition: Home with home care
Discharge planning: Required 45 minutes
Discharge Plan
-
Patient Disposition: Home with Home Care
Discharge Diagnosis/Procedures: Bilateral leg weakness, fall, back pain, headache
Condition: Fair
Diet: Low Fat and Low Cholesterol
Activity: As tolerated
Driving Restrictions: As prior to admission
Other Services: VN and PT
Activity Restrictions/Additional Instructions:
If your leg weakness persists, you may benefit from a test called an EMG.
Please follow-up with your primary care doctor in 1 week, neurology in the office in 3-4 weeks.
Referrals:
Farzana Santoro CRNP [Specified Professional Personl] - in three to four weeks
Leoncio Dutton MD [Family Provider] - in one week
Prescriptions:
New
acetaminophen [Tylenol Extra Strength] 500 mg Tablet
1,000 mg PO TID 10 Days Qty: 60 0RF
Continued
levothyroxine 75 mcg Tablet
75 mcg PO DAILY
tramadol 50 mg Tablet
50 mg PO TIDPRN PRN (Reason: severe pain)
alprazolam 0.5 mg Tablet
0.5 mg PO TID
zolpidem 10 mg Tablet
10 mg PO HSPRN PRN (Reason: sleep)
rosuvastatin 10 mg Tablet
10 mg PO QPM
Eliquis 5 mg Tablet
5 mg PO BID
sotalol 80 mg Tablet
40 mg PO Q12H Qty: 60 3RF
gabapentin 300 mg Capsule
900 mg PO TID
cyanocobalamin (vitamin B-12) 1,000 mcg Tablet
1,000 mcg PO DAILY
fluticasone propionate 50 mcg/actuation [place],Suspension
1 spray INTRANASAL DAILY
folic acid 800 mcg Tablet
0.8 mg PO DAILY
Discharge Orders:
Discharge Patient (As Directed); Ordered 01/17/24
Ordered By: Baljinder Morris
Discharge Date and Time
Discharge Date/Time: 01/17/24 16:59
Print Language: [id number]
--- NOTE | 2024-01-17 15:48 | CM ---
Alert awake oriented patient who lives with her daughter Farzana who lives in an apartment with an elevator.She is independent in all activities of daily living.Offered VN she requested. Has CPAP from [facility].
Never had VN/SNF
Ph[facility]
PCP Dr Leoncio Dutton
PLAN Home with VN . Pt requested walker . MD to provide script and PT notified of walker need. Daughter will drive her home.
[2024-01-17] MEDS: ULTRAM 50 MG PO (15:51)
[2024-01-17 16:18] LABS: Ferritin 18.3 ng/ml (11.1-264.0)
--- NOTE | 2024-01-17 16:27 | VNURNOTE ---
Home Health Liaison met with patient and daughter Farzana at bedside to discuss [facility] nurse/therapy, visits, schedule and homebound status. Patient is agreeable and understands that visits at home will be 1-3 x per week to assess and teach medical
management. [facility] brochure provided with contact information. Patient is aware that [facility] will contact them for start of care within a few days after discharge from .
[facility] referral completed in [facility].
[2024-01-17 16:49] LABS: Folate > 20.0 ng/ml (2.76-20); Vitamin B12 > 1000 pg/ml (239-931)
[2024-01-17 19:34] LABS: TSH Reflex To Free T4 1.99 uIU/ml (0.47-4.68)
== END 2024-01-17 16:59 | disposition home health service (06) | DRG 71 ==
LOC: 4 WEST ACU 16:42
PROVIDERS: ADMITTING PHYSICIAN Internal Medicine; ATTENDING PHYSICIAN Family Medicine; EMERGENCY PHYSICIAN Emergency Medicine; FAMILY PHYSICIAN Internal Medicine; OTHER PHYSICIAN Psychiatry & Neurology Neurology
DX: G93.41 Metabolic encephalopathy (principal); E87.1 Hypo-osmolality and hyponatremia; I48.0 Paroxysmal atrial fibrillation; D64.9 Anemia, unspecified; G89.29 Other chronic pain; M51.16 Intervertebral disc disorders with radiculopathy, lumbar region; R53.1 Weakness; R82.71 Bacteriuria; F32.A Depression, unspecified; F41.9 Anxiety disorder, unspecified; Z79.01 Long term (current) use of anticoagulants
CPT/HCPCS: 93308; 70450; 70496; 70498; 72146; 72148; 80053; 80061; 81003; 81015; 82607; 82728; 82746; 84443; 84484; 85025; 86041; 87077; 87086; 92610; 93005; 93321; 93325; 97162; 97166; 99291; Q9967

== ENCOUNTER → 2024-03-09 09:42 | Outpatient (REF) | payer MEDICARE, OTHER, SELFPAY | LOC: RCS 09:42 | PROVIDERS: ATTENDING PHYSICIAN Internal Medicine Cardiovascular Disease; FAMILY PHYSICIAN Internal Medicine | DX: I48.0 Paroxysmal atrial fibrillation (principal); R29.6 Repeated falls; R55 Syncope and collapse | CPT/HCPCS: 93225; 93226 ==

== ENCOUNTER 2024-05-26 07:27 | Day surgery (SDC) | payer MEDICARE, OTHER, SELFPAY ==
[2024-05-26 09:24] VITALS: BMI 26.6
--- NOTE | 2024-05-26 09:30 | ITS.CL.CARDI ---
Entry Level Business Analyst - Cardioversion
Cardioversion
Procedure Report:
Date of Procedure: 05/26/2024.
Procedure: Cardioversion.
Indication: Symptomatic atrial fibrillation.
Performing Physician: Cherry Duron MD
Technique: The patient was brought to the holding area. Signed informed consent was obtained. A time out was called and performed. The patient was sedated by a member of the anesthesia service. Anticoagulation status was reviewed and was
appropriate. R-2 pads were placed anteriorly and posteriorly. A 200 J synchronized biphasic shock restored normal sinus rhythm with A 6-second conversion pause. No intervention was needed, rhythm returned to sinus bradycardia at 56 bpm without
intervention. Patient is on sotalol. There were no complications.
Conclusion: Successful cardioversion from atrial fibrillation to sinus rhythm. 6-second pause seen at time of conversion. No intervention needed to return to sinus bradycardia.
Recommendation: Routine post cardioversion care. Continue joint terminal attack controller anticoagulation.
cc: Sheila
== END 2024-05-26 09:45 | disposition home or self-care (01) ==
LOC: CATH 07:27
PROVIDERS: ATTENDING PHYSICIAN Internal Medicine Cardiovascular Disease; FAMILY PHYSICIAN Internal Medicine; OTHER PHYSICIAN Internal Medicine Cardiovascular Disease
DX: I48.0 Paroxysmal atrial fibrillation (principal); E78.00 Pure hypercholesterolemia, unspecified; I34.0 Nonrheumatic mitral (valve) insufficiency; I27.20 Pulmonary hypertension, unspecified; Z79.01 Long term (current) use of anticoagulants
CPT/HCPCS: 92960; 93005

== ENCOUNTER → 2024-08-28 07:36 | Outpatient (REF) | payer MEDICARE, OTHER, SELFPAY ==
[2024-08-28 09:19] LABS: Hematocrit 37.3 % (37.0-47.0); Hemoglobin 12.2 g/dL (12.0-16.0); Mean Corp Hgb Conc. 32.7 g/dL (33.0-37.0); Mean Corpuscular Hgb 32.3 pg (27.0-31.0); Mean Corpuscular Volume 98.7 fL (81.0-99.0); Mean Platelet Volume 9.8 fL (7.4-10.4); Platelet Count 401 10^3/uL (130-400); Red Blood Cell Count 3.78 10^6/uL (4.20-5.40); Red Cell Dist. Width 14.3 % (11.5-14.5); White Blood Cell Count 5.2 10^3/uL (4.8-10.8)
[2024-08-28 10:38] LABS: TSH Reflex To Free T4 0.84 uIU/ml (0.47-4.68)
[2024-08-28 12:43] LABS: Vitamin B12 946 pg/ml (239-931)
[2024-08-28 13:08] LABS: ALT (SGPT) 14 U/L (0-35); AST (SGOT) 32 U/L (14-36); Albumin 4.9 g/dl (3.5-5.0); Alkaline Phosphatase 79 U/L (38-126); Blood Urea Nitrogen 12 mg/dl (7-17); Calcium 9.6 mg/dl (8.4-10.2); Carbon Dioxide 25 mmol/L (22-30); Chloride 107 mmol/L (98-107); Glucose 87 mg/dl (70-99); HDL Cholesterol 82 mg/dl; LDL Cholesterol, Calculated 78 mg/dl; Potassium 5.2 mmol/L (3.5-5.1); Sodium 142 mmol/L (135-145); Total Bilirubin 0.6 mg/dl (0.2-1.3); Total Cholesterol 197 mg/dl (50-199); Total Protein 7.9 g/dl (6.3-8.2); Triglyceride 189 mg/dl (10-149); Very Low Density Lipoprotein 37 mg/dl (0-30); eGFR > 60.00
== END ==
LOC: HWLAB 07:36
PROVIDERS: ATTENDING PHYSICIAN Internal Medicine
DX: I10 Essential (primary) hypertension (principal); D51.8 Other vitamin B12 deficiency anemias; E03.9 Hypothyroidism, unspecified; E78.5 Hyperlipidemia, unspecified; I48.21 Permanent atrial fibrillation
CPT/HCPCS: 36415; 80053; 80061; 82607; 84443; 85027

== ENCOUNTER → 2024-09-01 12:51 | Outpatient (REF) | payer MEDICARE, OTHER, SELFPAY | LOC: HWRCS 12:51 | PROVIDERS: ATTENDING PHYSICIAN Internal Medicine Cardiovascular Disease; FAMILY PHYSICIAN Internal Medicine | DX: I34.0 Nonrheumatic mitral (valve) insufficiency (principal) | CPT/HCPCS: 93306 ==

== ENCOUNTER → 2025-02-12 08:15 | Outpatient (REF) | payer MEDICARE, OTHER, SELFPAY ==
[2025-02-12 10:15] LABS: ALT (SGPT) 11 U/L (0-35); AST (SGOT) 24 U/L (14-36); Albumin 4.4 g/dl (3.5-5.0); Alkaline Phosphatase 73 U/L (38-126); Blood Urea Nitrogen 14 mg/dl (7-17); Calcium 9.4 mg/dl (8.4-10.2); Carbon Dioxide 26 mmol/L (22-30); Chloride 108 mmol/L (98-107); Glucose 92 mg/dl (70-99); HDL Cholesterol 98 mg/dl; LDL Cholesterol, Calculated 49 mg/dl; Magnesium 1.9 mg/dl (1.6-2.3); Potassium 4.7 mmol/L (3.5-5.1); Sodium 140 mmol/L (135-145); Total Protein 7.5 g/dl (6.3-8.2); Very Low Density Lipoprotein 38 mg/dl (0-30); eGFR > 60.00
[2025-02-12 10:44] LABS: TSH 0.95 uIU/ml (0.47-4.68)
[2025-02-12 10:52] LABS: Hematocrit 35.7 % (37.0-47.0); Hemoglobin 11.1 g/dL (12.0-16.0); Mean Corp Hgb Conc. 31.1 g/dL (33.0-37.0); Mean Corpuscular Volume 93.5 fL (81.0-99.0); Nucleated Red Blood Cells % 0 %; Platelet Count 374 10^3/uL (130-400); Red Cell Dist. Width 16.0 % (11.5-14.5)
[2025-02-12 11:55] LABS: Vitamin B12 946 pg/ml (239-931)
== END ==
LOC: HWLAB 08:15
PROVIDERS: ATTENDING PHYSICIAN Internal Medicine; REFERRING PHYSICIAN Internal Medicine Cardiovascular Disease
DX: I48.19 Other persistent atrial fibrillation (principal); E53.8 Deficiency of other specified B group vitamins; E03.9 Hypothyroidism, unspecified; E78.2 Mixed hyperlipidemia
CPT/HCPCS: 36415; 80053; 80061; 82607; 83735; 84439; 84443; 85025